=== PATIENT | female | born 1950 | race Caucasian/White ===

== ENCOUNTER 2020-04-03 11:53 | Emergency (ER) | payer MEDICARE ==
[~2020-04-03] VITALS: Ht 157.5 cm; Wt 58.7 kg
--- NOTE | 2020-04-03 14:08 | NUR ---
Patient left prior to receiving discharge instructions and Rx, they have confirmed that they understood verbal instructions. Patient ambulatory with steady gait.
== END 2020-04-03 14:18 | disposition home or self-care (01) ==
LOC: ED 13:28
DX: L30.9 Dermatitis, unspecified (principal); L40.9 Psoriasis, unspecified; R21 Rash and other nonspecific skin eruption; Z72.9 Problem related to lifestyle, unspecified
CPT/HCPCS: 99283